=== PATIENT | female | born 1980 | race Caucasian/White ===

== ENCOUNTER 2021-02-21 21:25 | Emergency (ER) | payer OTHER ==
[2021-02-21 21:47] LABS: HEMOGLOBIN 7.4 gm/dl (12.3-15.3); RED BLOOD COUNT 4.36 M/UL (4.00-5.10); WHITE BLOOD COUNT 10.5 K/UL (4.5-11.0)
[2021-02-21 22:18] LABS: BUN/CREATININE RATIO 15 (0-10)
[2021-02-22] MEDS ORDERED: ASPIRIN CHEWABL81 MG PO (02:00)
== END 2021-02-22 02:13 | disposition home or self-care (01) ==
LOC: ER1 21:25
PROVIDERS: Physician Assistant
DX: R07.9 Chest pain, unspecified (principal); R20.0 Anesthesia of skin; Z90.49 Acquired absence of other specified parts of digestive tract; Z90.89 Acquired absence of other organs
CPT/HCPCS: 71045; 80053; 82550; 82553; 83874; 83880; 84484; 85025; 85379; 85610; 85730; 93005; 99285